=== PATIENT | male | born 1960 | race Caucasian/White ===

== ENCOUNTER 2019-03-17 12:28 | Day surgery (SDC) | payer OTHER ==
[~2019-03-17] VITALS: Ht 180.3 cm; Wt 87.9 kg
[~2019-03-17 12:28] MED LIST: LIDOCAINE 1% MDV 20ML VIAL SQ PRN; LR 1,000 ML IV ONE
[2019-03-17] MEDS ORDERED: LIDOCAINE 2% INJ 100 MG/5 ML SDV (FOR ANES.) As Ordered ONE (13:37)
[2019-03-17] MEDS ORDERED: ROCURONIUM BROMIDE 50 MG/5 ML VIAL As Ordered ONE ×2 (13:37→18:33)
[2019-03-17] MEDS ORDERED: dexameTHASONE 4 MG/ML 1ML VIAL (J1100) As Ordered ONE (13:38)
[2019-03-17] MEDS ORDERED: PROPOFOL 200 MG/20 ML VIAL As Ordered ONE (13:38)
[2019-03-17] MEDS ORDERED: ONDANSETRON 4MG/2ML VIAL (J2405) As Ordered ONE (13:38)
[2019-03-17] MEDS ORDERED: METOPROLOL 5 MG/5 ML VIAL As Ordered ONE (13:46)
[2019-03-17] MEDS ORDERED: PHENYLephrine HCL 500 MCG/5 ML (100MCG/ML) SYRINGE (J2370) As Ordered ONE (14:33)
[2019-03-17] MEDS ORDERED: MIDAZOLAM INJ 2 MG/2 ML VIAL (J2250) As Ordered ONE (15:44)
[2019-03-17] MEDS ORDERED: fentaNYL 250 MCG/5 ML INJECTION (J3010) As Ordered ONE (15:44)
[2019-03-17] MEDS ORDERED: BUPIVACAINE/EPIN 0.25% 30 ML VIAL As Ordered ONE (17:14)
[2019-03-17] MEDS ORDERED: SUGAMMADEX SODIUM 500 MG/5 ML VIAL (BRIDION) As Ordered ONE (18:10)
[2019-03-17] MEDS ORDERED: KETOROLAC 60 MG/2 ML VIAL (J1885) As Ordered ONE (18:10)
[2019-03-17] MEDS ORDERED: ACETAMINOPHEN 1000MG 100ML IV BTL (OFIRMEV) (J0131 PER 10MG) As Ordered ONE (18:13)
[2019-03-17] MEDS ORDERED: HYDROmorphone HCL 2 MG/ML 1ML VIAL (J1170) As Ordered ONE (18:21)
[2019-03-17] MEDS ORDERED: PERCOCET 5MG/325MG TAB PO PRN (19:45)
[2019-03-17] MEDS ORDERED: LR 1,000 ML IV SCH (19:45)
[2019-03-17] MEDS ORDERED: fentaNYL 100 MCG/2 ML INJECTION (J3010) IV PRN (19:45)
[2019-03-17] MEDS ORDERED: MEPERIDINE INJ 25 MG/ML VIAL (J2175) IV PRN (19:45)
[2019-03-17] MEDS ORDERED: ONDANSETRON 4MG/2ML VIAL (J2405) IV PRN (19:45)
[2019-03-17] MEDS ORDERED: METOCLOPRAMIDE INJ 10MG/2ML VIAL (J2765) IV PRN (19:45)
[2019-03-17] MEDS ORDERED: NORCO, ANEXSIA 5/325MG TABLET (HYDROcodone/ACETAMINOPHEN) PO PRN (19:45)
[2019-03-17 22:50] VITALS: BP 150/81
--- NOTE | 2019-03-18 16:31 | RO ---
DATE OF PROCEDURE: 03/17/2019 PREOPERATIVE DIAGNOSIS: Bilateral inguinal hernias. POSTOPERATIVE DIAGNOSIS: Bilateral inguinal hernias. PROCEDURES: Robotic repair of bilateral inguinal hernias. SURGEON: Dr. Le MANAGER OF INVESTIGATIONS: None. ANESTHESIA: General. ESTIMATED BLOOD LOSS: 5. COMPLICATIONS: None. INDICATIONS FOR PROCEDURE: Patient is 59-year-old male with bilateral groin bulges found have bilateral inguinal hernias. Recommendation was to proceed with robotic repair. Risks and benefits of procedure not limited but including bleeding, infection, hernia recurrence, damage to surrounding structures and need for further surgery were discussed in detail with the patient. Informed consent was obtained. Procedure was planned. PROCEDURE: The patient was brought back to operating room #7. After sufficient sedation, the abdomen was sterilely prepped and draped. Next, a time-out was done to confirm proper patient and proper procedure. Following that a stab incision was made in left lower quadrant. Veress needle was inserted and the abdomen was insufflated to 15 mmHg. Next, an 8 mm port was placed superior to the umbilicus and an 8 mm Optiview camera was used to gain access to the abdomen. Once the abdomen was entered, Veress needle site was examined. There were no signs of any injury. Veress needle was then removed. Two more 8 mm ports were placed in the left and right midabdomen. Next, the robot was docked to the ports and from the console there were obvious direct inguinal hernias identified in the both left and right groin. Starting on the right side, the peritoneum was entered superior to the defect with a curved incision. The preperitoneal space was dissected free laterally and then medially, and then circumferentially around the direct defect. Once it was completely dissected free, the hernia sac was completely dissected free as well as the cord structures. A cord lipoma was identified and that was dissected free and removed completely. The hernia defect on the right side was then closed primarily with a #2-0 V-Loc suture. Once that was completed, the dissection was done on all left side. The peritoneum was opened and the preperitoneal space was dissected free medially, laterally and then around the entire hernia defect. The direct hernia was completely reduced. Once that was completely reduced, both left and right 3DMax medium meshes were placed into the preperitoneal space. A #2-0 Vicryl suture was used to suture the mesh to the pubic symphysis on both sides. Once that was completed, a #2-0 V-Loc was used to close the peritoneum in both sides. Once that was done, the abdomen was desufflated. The cord lipoma was removed from the abdomen. All the sutures removed. The incisions were closed with #4-0 Vicryl subcuticular sutures. The abdomen was cleaned and dried. Steri-Strips, 4 x 4 and tape were applied, thus ending procedure.
== END 2019-03-17 22:50 | disposition home or self-care (01) ==
LOC: M SDC 12:28
PROVIDERS: ATTEND Surgery
DX: K40.20 Bilateral inguinal hernia, without obstruction or gangrene, not specified as recurrent (principal); F17.290 Nicotine dependence, other tobacco product, uncomplicated
CPT/HCPCS: 49650; C1781; J0131; J0690; J1100; J1170; J1885; J2250; J2405; J3010

== ENCOUNTER 2019-03-20 19:34 | Observation (INO) | payer OTHER ==
[~2019-03-20] VITALS: Ht 180.3 cm; Wt 87.4 kg
[2019-03-20] MEDS ORDERED: GOOD200C PO (19:43)
[2019-03-20] MEDS ORDERED: NS 1,000 ML IV SCH (20:16)
[2019-03-20] MEDS ORDERED: PANTOPRAZOLE 40MG INJ (PROTONIX) (C9113) IV ONE (20:30)
[2019-03-20] MEDS ORDERED: GI COCKTAIL 50ML BTL(HYOSCYAMINE/MAALOX/LIDOCAINE VISCOUS)(1:3:1) PO ONE (20:30)
[2019-03-20] MEDS ORDERED: ONDANSETRON 4MG/2ML VIAL (J2405) IV ONE (20:30)
[2019-03-20 21:00] LABS: BASO # 0.1 10^3/uL (0.0-0.2); BASO % 0.4 % (0.0-1.0); EOS # 0.1 10^3/uL (0.0-0.5); EOS % 0.7 % (0.0-3.0); HEMATOCRIT 24.7 % (42.0-52.0); HEMOGLOBIN 8.6 g/dl (13.5-17.5); LYMPH # 2.8 10^3/uL (1.5-5.0); LYMPH % 24.3 % (24.0-44.0); MEAN CORPUSCULAR HEMOGLOBIN 32.3 pg (27.0-33.0); MEAN CORPUSCULAR HGB CONC 34.8 g/dl (32.0-36.5); MEAN CORPUSCULAR VOLUME 92.9 fl (80.0-96.0); MONO # 1.4 10^3/uL (0.0-0.8); MONO % 12.4 % (0.0-5.0); NEUTROPHILS % 61.6 % (36.0-66.0); PLATELET COUNT, AUTOMATED 180 10^3/uL (150-450); RED BLOOD COUNT 2.66 10^6/uL (4.30-6.10); WHITE BLOOD COUNT 11.3 10^3/uL (4.0-10.0)
[2019-03-20 21:28] LABS: ALBUMIN 3.2 GM/DL (3.2-5.2); ALT/SGPT 20 U/L (12-78); BILIRUBIN,DIRECT 0.1 MG/DL (0.0-0.2); BILIRUBIN,TOTAL 0.4 MG/DL (0.2-1.0); BLOOD UREA NITROGEN 17 MG/DL (7-18); CALCIUM LEVEL 8.1 MG/DL (8.5-10.1); CARBON DIOXIDE LEVEL 26 MEQ/L (21-32); CHLORIDE LEVEL 104 MEQ/L (98-107); CK-MB VALUE MASS < 1.0 NG/ML (<3.6); CPK CREATINE PHOSPHOKINASE 53 U/L (39-308); CREATININE FOR GFR 0.97 MG/DL (0.70-1.30); GLOMERULAR FILTRATION RATE > 60.0 (>56); GLUCOSE, FASTING 112 MG/DL (70-100); LIPASE 80 U/L (73-393); MB/CK RELATIVE INDEX 1.89 (< OR =4); POTASSIUM SERUM 4.1 MEQ/L (3.5-5.1); SODIUM LEVEL 139 MEQ/L (136-145); TOTAL PROTEIN 5.8 GM/DL (6.4-8.2); TROPONIN I < 0.02 NG/ML (< 0.10)
--- NOTE | 2019-03-20 22:16 | REPVR ---
EXAM: XR Chest, 2 Views EXAM DATE/TIME: 03/20/2019 9:11 PM CLINICAL HISTORY: 59 years old, male; Chest pain; Type not specified TECHNIQUE: Imaging protocol: XR of the chest Views: 2 views. COMPARISON: No relevant prior studies available. FINDINGS: Lungs: No focal areas of consolidation. Pleural space: No pleural effusion or pneumothorax. Heart/Mediastinum: Cardiac and mediastinal silhouettes are unremarkable. Bones/joints: No acute osseus lesion or fracture. IMPRESSION: No acute cardiopulmonary pathology. Electronically signed by: James Beltran On 03/20/2019 22:16:18 PM
[2019-03-20] MEDS ORDERED: NORC1TAB7 PO (23:22)
--- NOTE | 2019-03-20 23:32 | HPEPDOC ---
General Date of Admission 03/20/19 Date of Service: Mar 20, 2019 Attending Physician: CHEPE FLORIAN DO Chief Complaint The patient is a 59-year-old male admitted with a reason for visit of [facility]. History of Present Illness Patient is 59 years old male with past medical history of bilateral inguinal hernia, who was a smoker presented to the hospital with upper epigastric pain and burping. Patient stated that 4 days ago he did have a robotic bilateral inguinal hernia repair. After surgery on the next day he developed severe hiccups with loss of appetite. Patient did have a few episodes of vomiting today. For past 2 days his hiccups also associated with epigastric pain and nausea. Also patient complained of profound weakness. In emergency room patient received GI cocktail, omeprazole. Chest x-ray was negative, troponin was negative. Stool for occult blood was negative. Of note patient noticed 3 days ago black stool. Patient has never had colonoscopy. Pat ient was found to have anemia with hemoglobin level of 8.6. Patient denies fever, chills, shortness of breath, diarrhea or dysuria Home Medications Scheduled PRN Hydrocodone/Acetaminophen ([place] 5-325 Tablet) 1 Each Tablet, 1 TAB PO Q6H PRN for POST SURGICAL PAIN, (Reported) Ibuprofen (Ibuprofen) 200 Mg Capsule, 400 MG PO Q8H PRN for PAIN, (Reported) Allergies Coded Allergies: No Known Allergies (Unverified , 03/17/19) Past Medical History Medical History Bilateral inguinal hernia Former smoker stopped 1 month ago Surgical History Bilateral inguinal hernia repair Family History Father from lung cancer, mother has breast cancer Social History * Smoker: former Smoker Alcohol: occationally Drugs: denies A-FIB/CHADSVASC A-FIB History Current/History of A-Fib/PAF?: No Current PO Anticoag Therapy: No Review of Systems Constitutional: Reports: Weakness, Fatigue; Denies: Chills Eyes: Denies: Pain, Vision change ENT: Denies: Head Aches, Ear Pain Skin: Denies: Lesions Pulmonary: Denies: Dyspnea, Cough Cardiovascular: Denies: Chest Pain Gastrointestinal: Reports: Nausea, Vomiting, Abdominal Pain (epigastric abdominal pain) Genitourinary: Denies: Dysuria, Frequency Hematologic: Denies: Bruising, Bleeding Excessively Endocrine: Denies: Polydipsia, Polyphagia Musculoskeletal: Denies: Neck Pain, Back Pain Neurological: Denies: Weakness, Numbness Psych: Reports: Mood Normal Physical Examination General Exam: Positive: Alert, Cooperative Eye Exam: Positive: PERRLA, Conjunctiva & lids normal ENT Exam: Positive: Atraumatic, Mucous membr. moist/pink Neck Exam: Positive: Supple; Negative: JVD Chest Exam: Positive: Clear to auscultation Heart Exam: Positive: Rate Normal, Regular Rhythm Telemetry: Positive: No significant arrhythmia Abdomen Exam: Positive: BS Hypoactive, Soft, Other (pain relief after GI cocktail) Vital Signs Vital Signs Date Time Temp Pulse Resp B/P (MAP) Pulse Ox O2 Delivery O2 Flow Rate FiO2 03/20/19 22:34 86 20 131/66 (87) 100 Room Air 03/20/19 19:34 98.3 Laboratory Data Labs 24H Laboratory Tests 2 03/20/19 20:55: Immature Granulocyte % (Auto) 0.6, White Blood Count 11.3H, Red Blood Count 2.66L, Hemoglobin 8.6L, Hematocrit 24.7L, Mean Corpuscular Volume 92.9, Mean Corpuscular Hemoglobin 32.3, Mean Corpuscular Hemoglobin Concent 34.8, Red Cell Distribution Width 12.0, Platelet Count 180, Neutrophils (%) (Auto) 61.6, Lymphocytes (%) (Auto) 24.3, Monocytes (%) (Auto) 12.4H, Eosinophils (%) (Auto) 0.7, Basophils (%) (Auto) 0.4, Neutrophils # (Auto) 7.0, Lymphocytes # (Auto) 2.8, Monocytes # (Auto) 1.4H, Eosinophils # (Auto) 0.1, Basophils # (Auto) 0.1, Nucleated Red Blood Cells % (auto) 0.0, Anion Gap 9, Glomerular Filtration Rate > 60.0, Calcium Level 8.1L, Aspartate Amino Transf (AST/SGOT) 16, Alanine Aminotransferase (ALT/SGPT) 20, Alkaline Phosphatase 41L, Total Bilirubin 0.4, Direct Bilirubin 0.1, Total Creatine Kinase 53, Creatine Kinase MB < 1.0, Creatine Kinase MB Relative Index 1.89, Troponin I < 0.02, Total Protein 5.8L, Albumin 3.2, Albumin/Globulin Ratio 1.23, Lipase 80 CBC/BMP Laboratory Tests 03/20/19 20:55 Red Blood Count 2.66 L, Mean Corpuscular Volume 92.9, Mean Corpuscular Hemoglobin 32.3, Mean Corpuscular Hemoglobin Concent 34.8, Red Cell Distribution Width 12.0, Neutrophils (%) (Auto) 61.6, Lymphocytes (%) (Auto) 24.3, Monocytes (%) (Auto) 12.4 H, Eosinophils (%) (Auto) 0.7, Basophils (%) (Auto) 0.4, Neutrophils # (Auto) 7.0, Lymphocytes # (Auto) 2.8, Monocytes # (Auto) 1.4 H, Eosinophils # (Auto) 0.1, Basophils # (Auto) 0.1 Microbiology Microbiology 03/20/19 Group A Streptococcus Screen (LENI), Received Pending Assessment/Plan Patient is 59 years old male with past medical history of bilateral inguinal hernia, who was smoker presented to the hospital with upper epigastric pain and burping. Patient was found to have hemoglobin of 8.6. Problems (1) Abdominal pain Problem Text: The differential diagnosis includes GERD, peptic ulcer, gastritis PPI IV IV fluid Appreciate/agree with head of sales consult (2) Anemia Status: Acute Problem Text: Most likely secondary to stress ulcer after surgery H&H every 6 hours Due to profound weakness we will give him 1 unit of blood Iron panel before blood transfusion Patient will need colonoscopy and EGD Will check B12 and folate level Plan / VTE VTE Prophylaxis Ordered?: No VTE Exclusion Pharmacological: Active Bleeding CHEPE FLORIAN DO Mar 20, 2019 23:32
[2019-03-20] MEDS: NS 1,000 ML IV SCH (23:34)
[2019-03-20 23:45] LABS: FERRITIN 185 NG/ML (26-388); IRON (FE) 55 UG/DL (65-175); PERCENT SATURATION 22.5 % (19.7-50.0); TOTAL IRON BINDING CAPACITY 244 UG/DL (250-450)
[2019-03-21 00:48] VITALS: BP 130/60
[2019-03-21] MEDS ORDERED: NS 1,000 ML IV SCH (01:05)
[2019-03-21 04:30] VITALS: BP 127/64
[2019-03-21 07:16] LABS: HEMATOCRIT 24.7 % (42.0-52.0); HEMOGLOBIN 8.4 g/dl (13.5-17.5)
[2019-03-21] MEDS: NS 1,000 ML IV SCH (08:44)
[2019-03-21] MEDS ORDERED: CYANOCOBALAMIN 500 MCG TAB PO SCH (09:00)
[2019-03-21] MEDS ORDERED: PANTOPRAZOLE 40MG INJ (PROTONIX) (C9113) IV SCH (09:00)
[2019-03-21 10:24] LABS: FOLATE 15.1 NG/ML (>5.4); VITAMIN B12 LEVEL 278 PG/ML (247-911)
[2019-03-21 13:26] LABS: HEMATOCRIT 24.3 % (42.0-52.0); HEMOGLOBIN 8.2 g/dl (13.5-17.5)
[2019-03-21 14:00] VITALS: BP 114/61
[2019-03-21] MEDS ORDERED: ONDANSETRON 4MG/2ML VIAL (J2405) IV PRN (14:45)
[2019-03-21] MEDS ORDERED: VITA500T40 PO (16:58)
[2019-03-21] MEDS ORDERED: RANI1TAB38 PO (16:58)
[2019-03-21 19:12] VITALS: BP 138/67
--- NOTE | 2019-03-22 04:29 | ECGEPIP ---
[facility] - ED Test Date: 2019-03-20 Pat Name: JESSICA HARLEY Department: Room: [place] [address] Gender: Male Pharmacy Tech: rachel : 1960 Requested By: MANDIE Flores Order Number: [id number] Reading MD: George Salamanca Measurements Intervals [place] Rate: 79 P: 74 VT: 172 QRS: 40 QRSD: 84 T: 47 QT: 359 QTc: 412 Interpretive Statements SINUS RHYTHM NO PRIORS FOR COMPARISON Electronically Signed on 03-22-2019 4:29:50 EDT by George Salamanca
[2019-03-22 11:08] LABS: ALBUMIN 2.99 GM/DL (3.29-5.55); ALBUMIN % 59.7 % (55.8-66.1); ALPHA-1-GLOBULIN % 7.6 % (2.9-4.9); ALPHA-1-GLOBULINS 0.38 GM/DL (0.17-0.41); ALPHA-2-GLOBULINS 0.66 GM/DL (0.42-0.99); ALPHA-2-GLOBULINS % 13.2 % (7.1-11.8); BETA-1-GLOBULINS 0.27 GM/DL (0.28-0.60); BETA-1-GLOBULINS % 5.4 % (4.7-7.2); BETA-2-GLOBULINS 0.24 GM/DL (0.19-0.55); BETA-2-GLOBULINS % 4.8 % (3.2-6.5); GAMMA GLOBULIN % 9.3 % (11.1-18.8); GAMMA GLOBULINS 0.47 GM/DL (0.65-1.58)
[2019-03-24 00:06] LABS: FREE KAPPA LIGHT CHAINS SERUM 12.4 mg/L (3.3-19.4); FREE LAMBDA LIGHT CHAINS SERUM 15.2 mg/L (5.7-26.3); KAPPA/LAMBDA RATIO SERUM 0.82 (0.26-1.65)
[2019-04-12] MEDS ORDERED: IRON65TA2 PO (13:15)
[2019-04-12] MEDS ORDERED: C 50TAB PO (13:15)
[2019-06-06] MEDS ORDERED: OMEP40CA97 PO (10:17)
== END 2019-03-21 19:26 | disposition home or self-care (01) ==
LOC: M ED 19:34 → M ED INP 19:35 → M MS4PR 03-21 00:45
PROVIDERS: ADMIT Internal Medicine; ATTEND Internal Medicine
DX: D64.9 Anemia, unspecified (principal); R53.1 Weakness; Z87.891 Personal history of nicotine dependence
CPT/HCPCS: 36415; 36430; 71046; 80048; 80076; 82550; 82553; 82607; 82728; 82746; 83550; 83690; 83883; 84165; 84484; 85014; 85018; 85025; 85652; 86850; 86900; 86901; 86920; 87880; 93005; 93041; 94760; 96361; 96374; 96375; 96376; 99285; C9113; J2405; P9016

== ENCOUNTER 2019-04-20 07:42 | Day surgery (SDC) | payer OTHER ==
[~2019-04-20] VITALS: Ht 180.3 cm; Wt 86.5 kg
[~2019-04-20 07:42] MED LIST changes: +C 50TAB PO; +GOOD200C PO; +IRON65TA2 PO; -LIDOCAINE 1% MDV 20ML VIAL SQ PRN; -LR 1,000 ML IV ONE; +NORC1TAB7 PO; +NS 1,000 ML IV ONE; +RANI1TAB38 PO; +VITA500T40 PO
[2019-04-20] MEDS ORDERED: PROPOFOL 500 MG/50 ML VIAL As Ordered ONE (08:29)
[2019-04-20] MEDS ORDERED: LIDOCAINE 2% INJ 100 MG/5 ML SDV (FOR ANES.) As Ordered ONE (08:29)
[2019-04-20] MEDS ORDERED: fentaNYL 100 MCG/2 ML INJECTION (J3010) As Ordered ONE (08:29)
[2019-04-20] MEDS ORDERED: PROPOFOL 200 MG/20 ML VIAL As Ordered ONE (09:59)
--- NOTE | 2019-04-20 10:06 | ROOR ---
Patient Name: Leopoldo Magallanes Procedure Date: 04/20/2019 9:14 AM Date of : 1960 Age: 59 Room: [facility] Gender: Male Note Status: Finalized Procedure: Upper GI endoscopy Indications: Iron deficiency anemia Providers: DO Morenita Villagomez MD: JENNY ALVARADO MD Requesting Provider: Medicines: Propofol per Anesthesia Complications: No immediate complications. Procedure: Pre-Anesthesia Assessment: - Prior to the procedure, a History and Physical was performed, and patient medications and allergies were reviewed. The patient is competent. The risks and benefits of the procedure and the sedation options and risks were discussed with the patient. All questions were answered and informed consent was obtained. Patient identification and proposed procedure were verified by the physician, the nurse, the anesthesiologist and the is technician in the endoscopy suite. Mental Status Examination: alert and oriented. Airway Examination: normal oropharyngeal airway and neck mobility. Respiratory Examination: clear to auscultation. CV Examination: normal. Prophylactic Antibiotics: The patient does not require prophylactic antibiotics. Prior Anticoagulants: The patient has taken no previous anticoagulant or antiplatelet agents. ASA Grade Assessment: II - A patient with mild systemic disease. After reviewing the risks and benefits, the patient was deemed in satisfactory condition to undergo the procedure. The anesthesia plan was to use monitored anesthesia care (MAC). Immediately prior to administration of medications, the patient was re-assessed for adequacy to receive sedatives. The heart rate, respiratory rate, oxygen saturations, blood pressure, adequacy of pulmonary ventilation, and response to care were monitored throughout the procedure. The physical status of the patient was re-assessed after the procedure. The Endoscope was introduced through the mouth, and advanced to the second part of duodenum. The upper GI endoscopy was accomplished without difficulty. The patient tolerated the procedure well. Findings: A medium-sized hiatal hernia was present. LA Grade D (one or more mucosal breaks involving at least 75% of esophageal circumference) esophagitis with bleeding was found. Biopsies were taken with a cold forceps for histology. Estimated blood loss was minimal. Diffuse mild inflammation characterized by congestion (edema) and friability was found in the duodenal bulb. Multiple less than 5 mm pedunculated and sessile polyps with no bleeding were found in the duodenal bulb. The polyp was removed with a jumbo cold forceps. Resection and retrieval were complete. Estimated blood loss was minimal. The exam was otherwise without abnormality. Impression: - Medium-sized hiatal hernia. - LA Grade D esophagitis. Biopsied. - Duodenitis. - Multiple duodenal polyps. Resected and retrieved. - The examination was otherwise normal. Recommendation: - Patient has a contact number available for emergencies. The signs and symptoms of potential delayed complications were discussed with the patient. Return to normal activities tomorrow. Written discharge instructions were provided to the patient. - Return to my office as previously scheduled. - Await pathology results. Oneal Le DO 04/20/2019 10:06:18 AM Electronically signed by Oneal Le DO Number of Addenda: 0 Note Initiated On: 04/20/2019 9:14 AM Estimated Blood Loss: Estimated blood loss was minimal.
--- NOTE | 2019-04-20 10:11 | ROOR ---
Patient Name: Leopoldo Magallanes Procedure Date: 04/20/2019 9:15 AM Date of : 1960 Age: 59 Room: [facility] Gender: Male Note Status: Finalized Procedure: Colonoscopy Indications: Iron deficiency anemia Providers: DO Morenita Villagomez MD: JENNY ALVARADO MD Requesting Provider: Medicines: Propofol per Anesthesia Complications: No immediate complications. Procedure: Pre-Anesthesia Assessment: - Prior to the procedure, a History and Physical was performed, and patient medications and allergies were reviewed. The patient is competent. The risks and benefits of the procedure and the sedation options and risks were discussed with the patient. All questions were answered and informed consent was obtained. Patient identification and proposed procedure were verified by the physician, the nurse, the anesthesiologist and the nanotechnology technician in the endoscopy suite. Mental Status Examination: alert and oriented. Airway Examination: normal oropharyngeal airway and neck mobility. Respiratory Examination: clear to auscultation. CV Examination: normal. Prophylactic Antibiotics: The patient does not require prophylactic antibiotics. Prior Anticoagulants: The patient has taken no previous anticoagulant or antiplatelet agents. ASA Grade Assessment: II - A patient with mild systemic disease. After reviewing the risks and benefits, the patient was deemed in satisfactory condition to undergo the procedure. The anesthesia plan was to use monitored anesthesia care (MAC). Immediately prior to administration of medications, the patient was re-assessed for adequacy to receive sedatives. The heart rate, respiratory rate, oxygen saturations, blood pressure, adequacy of pulmonary ventilation, and response to care were monitored throughout the procedure. The physical status of the patient was re-assessed after the procedure. The Colonoscope was introduced through the anus and advanced to the cecum, identified by appendiceal orifice and ileocecal valve. The colonoscopy was performed without difficulty. The patient tolerated the procedure well. Findings: Non-bleeding internal hemorrhoids were found during retroflexion. The hemorrhoids were small and Grade I (internal hemorrhoids that do not prolapse). A few small-mouthed diverticula were found in the sigmoid colon. A 18 mm polyp was found in the ascending colon. The polyp was semi-pedunculated. The polyp was removed with a piecemeal technique using a hot snare. Resection and retrieval were complete. Estimated blood loss was minimal. Multiple carpet-like polyps were found in the sigmoid colon and descending colon. The polyps were 4 to 8 mm in size. These polyps were removed with a jumbo cold forceps. Resection and retrieval were complete. Estimated blood loss was minimal. Impression: - Non-bleeding internal hemorrhoids. - Diverticulosis in the sigmoid colon. - One 18 mm polyp in the ascending colon, removed piecemeal using a hot snare. Resected and retrieved. - Multiple 4 to 8 mm polyps in the sigmoid colon and in the descending colon, removed with a jumbo cold forceps. Resected and retrieved. Recommendation: - Repeat colonoscopy in 1 year for surveillance after piecemeal polypectomy. - Return to my office as previously scheduled. - Await pathology results. Oneal Le DO 04/20/2019 10:10:37 AM Electronically signed by Oneal Le DO Number of Addenda: 0 Note Initiated On: 04/20/2019 9:15 AM Estimated Blood Loss: Estimated blood loss was minimal.
[2019-04-20 10:42] VITALS: BP 138/81
== END 2019-04-20 10:44 | disposition home or self-care (01) ==
LOC: M OPP 07:42
PROVIDERS: ATTEND Surgery
DX: K64.0 First degree hemorrhoids (principal); D12.2 Benign neoplasm of ascending colon; D12.5 Benign neoplasm of sigmoid colon; D12.4 Benign neoplasm of descending colon; K57.30 Diverticulosis of large intestine without perforation or abscess without bleeding; D50.9 Iron deficiency anemia, unspecified; K44.9 Diaphragmatic hernia without obstruction or gangrene; K20.9 Esophagitis, unspecified; K29.80 Duodenitis without bleeding; K31.7 Polyp of stomach and duodenum; Z87.891 Personal history of nicotine dependence
CPT/HCPCS: 43239; 45380; 45385; 88305; J3010

== ENCOUNTER 2019-06-15 07:22 | Day surgery (SDC) | payer OTHER ==
[~2019-06-15] VITALS: Ht 180.3 cm; Wt 92.5 kg
[~2019-06-15 07:22] MED LIST changes: +OMEP40CA97 PO; +PROPOFOL 200 MG/20 ML VIAL As Ordered ONE
[2019-06-15] MEDS ORDERED: PROPOFOL 200 MG/20 ML VIAL As Ordered ONE (09:08)
--- NOTE | 2019-06-15 09:22 | ROOR ---
Patient Name: Leopoldo Magallanes Procedure Date: 06/15/2019 8:37 AM Date of : 1960 Age: 59 Room: [facility] Gender: Male Note Status: Finalized Procedure: Colonoscopy Indications: High risk colon cancer surveillance: Personal history of colonic polyps Providers: DO Morenita Villagomez MD: JENNY ALVARADO MD Requesting Provider: Medicines: Propofol per Anesthesia Complications: No immediate complications. Procedure: Pre-Anesthesia Assessment: - Prior to the procedure, a History and Physical was performed, and patient medications and allergies were reviewed. The patient is competent. The risks and benefits of the procedure and the sedation options and risks were discussed with the patient. All questions were answered and informed consent was obtained. Patient identification and proposed procedure were verified by the physician, the nurse, the anesthesiologist and the claims technician in the endoscopy suite. Mental Status Examination: alert and oriented. Airway Examination: normal oropharyngeal airway and neck mobility. Respiratory Examination: clear to auscultation. CV Examination: normal. Prophylactic Antibiotics: The patient does not require prophylactic antibiotics. Prior Anticoagulants: The patient has taken no previous anticoagulant or antiplatelet agents. ASA Grade Assessment: II - A patient with mild systemic disease. After reviewing the risks and benefits, the patient was deemed in satisfactory condition to undergo the procedure. The anesthesia plan was to use monitored anesthesia care (MAC). Immediately prior to administration of medications, the patient was re-assessed for adequacy to receive sedatives. The heart rate, respiratory rate, oxygen saturations, blood pressure, adequacy of pulmonary ventilation, and response to care were monitored throughout the procedure. The physical status of the patient was re-assessed after the procedure. The Colonoscope was introduced through the anus and advanced to the cecum, identified by appendiceal orifice and ileocecal valve. The colonoscopy was performed without difficulty. The patient tolerated the procedure well. Findings: Non-bleeding internal hemorrhoids were found during retroflexion. The hemorrhoids were Grade I (internal hemorrhoids that do not prolapse). Multiple small-mouthed diverticula were found in the sigmoid colon. Seven polyps were found in the sigmoid colon, descending colon, transverse colon and cecum. The polyps were small in size. These polyps were removed with a jumbo cold forceps. Resection and retrieval were complete. Estimated blood loss was minimal. The exam was otherwise without abnormality on direct and retroflexion views. Impression: - Non-bleeding internal hemorrhoids. - Diverticulosis in the sigmoid colon. - Seven small polyps in the sigmoid colon, in the descending colon, in the transverse colon and in the cecum, removed with a jumbo cold forceps. Resected and retrieved. - The examination was otherwise normal on direct and retroflexion views. Recommendation: - Patient has a contact number available for emergencies. The signs and symptoms of potential delayed complications were discussed with the patient. Return to normal activities tomorrow. Written discharge instructions were provided to the patient. - Repeat colonoscopy in 3 - 5 years for surveillance based on pathology results. - Return to my office as previously scheduled. Oneal Le DO 06/15/2019 9:22:37 AM Electronically signed by Oneal Le DO Number of Addenda: 0 Note Initiated On: 06/15/2019 8:37 AM Estimated Blood Loss: Estimated blood loss was minimal.
[2019-06-15 09:45] VITALS: BP 113/64
== END 2019-06-15 09:56 | disposition home or self-care (01) ==
LOC: M OPP 07:22
PROVIDERS: ATTEND Surgery
DX: K64.0 First degree hemorrhoids (principal); K63.5 Polyp of colon; K57.30 Diverticulosis of large intestine without perforation or abscess without bleeding; K21.9 Gastro-esophageal reflux disease without esophagitis; Z86.010 Personal history of colon polyps; Z87.891 Personal history of nicotine dependence

== ENCOUNTER 2019-10-20 10:08 | Emergency (ER) | payer OTHER ==
[~2019-10-20] VITALS: Ht 180.3 cm; Wt 98.3 kg
[~2019-10-20 10:08] MED LIST changes: -NS 1,000 ML IV ONE; -PROPOFOL 200 MG/20 ML VIAL As Ordered ONE
[2019-10-20] MEDS ORDERED: OMEP-221 (10:16)
[2019-10-20] MEDS ORDERED: NS 1,000 ML IV ONE (10:45)
[2019-10-20 10:55] LABS: BASO % 0.6 % (0.0-1.0); EOS # 0.2 10^3/uL (0.0-0.5); EOS % 3.8 % (0.0-3.0); HEMATOCRIT 41.3 % (42.0-52.0); LYMPH % 30.7 % (24.0-44.0); MEAN CORPUSCULAR HEMOGLOBIN 30.2 pg (27.0-33.0); MEAN CORPUSCULAR HGB CONC 33.9 g/dl (32.0-36.5); MEAN CORPUSCULAR VOLUME 89.2 fl (80.0-96.0); MONO # 0.8 10^3/uL (0.0-0.8); MONO % 11.8 % (0.0-5.0); NEUTROPHILS # 3.4 10^3/uL (1.5-8.5); NEUTROPHILS % 52.9 % (36.0-66.0); PLATELET COUNT, AUTOMATED 180 10^3/uL (150-450); RED BLOOD COUNT 4.63 10^6/uL (4.30-6.10); WHITE BLOOD COUNT 6.4 10^3/uL (4.0-10.0)
[2019-10-20 11:04] LABS: INR 1.08; PROTHROMBIN TIME 13.7 SECONDS (11.8-14.0)
[2019-10-20 11:05] LABS: PARTIAL THROMBOPLASTIN TIME 30.9 SECONDS (25.0-38.4)
[2019-10-20 11:26] LABS: ALBUMIN 4.2 GM/DL (3.2-5.2); ALT/SGPT 52 U/L (12-78); BILIRUBIN,DIRECT 0.1 MG/DL (0.0-0.2); BILIRUBIN,TOTAL 0.5 MG/DL (0.2-1.0); BLOOD UREA NITROGEN 19 MG/DL (7-18); CALCIUM LEVEL 8.4 MG/DL (8.5-10.1); CARBON DIOXIDE LEVEL 27 MEQ/L (21-32); CHLORIDE LEVEL 107 MEQ/L (98-107); CREATININE FOR GFR 1.21 MG/DL (0.70-1.30); GLOMERULAR FILTRATION RATE > 60.0 (>56); GLUCOSE, FASTING 92 MG/DL (70-100); LIPASE 109 U/L (73-393); POTASSIUM SERUM 4.4 MEQ/L (3.5-5.1); SODIUM LEVEL 139 MEQ/L (136-145); TOTAL PROTEIN 7.2 GM/DL (6.4-8.2)
--- NOTE | 2019-10-20 11:59 | REP ---
REASON FOR EXAM: Abdominal pain and black stool. FINDINGS: Supine and upright views of the abdomen show the intestinal gas pattern to be nonspecific. Gas and stool is seen throughout the colon within the rectosigmoid region. The organ silhouettes insofar as delineated appear unremarkable. No abdominal calcific densities are seen within the abdomen or pelvis. The accompanying single frontal view of the chest shows no free subdiaphragmatic air, cardiomegaly, infiltrates or effusions. IMPRESSION: Nonspecific intestinal gas pattern. Electronically Signed by Radames Sotelo DO 10/20/2019 12:14 P
[2019-10-20] MEDS ORDERED: SIME180C PO (12:22)
[2019-10-20 12:30] VITALS: BP 135/75
== END 2019-10-20 12:34 | disposition home or self-care (01) ==
LOC: M ED 10:08
DX: K92.1 Melena (principal); R14.0 Abdominal distension (gaseous); Z79.899 Other long term (current) drug therapy

== ENCOUNTER → 2020-01-23 | Outpatient (CLI) | payer OTHER ==
[~2020-01-23] MED LIST changes: +GASTROGRAFIN SOLUTION 30ML (Q9963) As Ordered ONE; +ISOVUE-370 76% 100ML VIAL As Ordered ONE; +OMEP-221; +SIME180C PO
--- NOTE | 2020-01-23 16:22 | REP ---
Clinical: Lower abdominal pain. Technique: Axial contrast enhanced images from the lung bases to the pubic symphysis using oral (per protocol) and 100 ml Isovue 370 intravenous contrast material with delayed images of the abdomen. Findings: Lung bases are clear. Visualized heart and pericardium normal. Liver includes two hypodensities compatible with cysts measuring up to approximately 1.3 cm. Spleen, pancreas, gallbladder, bilateral adrenal glands and kidneys are normal. The enteric system is without obstruction or acute inflammatory process. Pelvis demonstrates normal bladder and mild prostatomegaly along with fat containing inguinal hernia (left greater than right). No ascites. No free air. No adenopathy. Abdominal aorta without aneurysm or dissection. Musculoskeletal structures are intact. Impression: 1. Two small hepatic cysts measure up to 1.3 cm. 2. Small/moderate fat containing inguinal hernias (left greater than right). 3. No further acute abdominopelvic pathology appreciated. Electronically Signed by Mauri Luciano MD 01/23/2020 04:14 P
== END ==
LOC: M RAD 13:48
PROVIDERS: ATTEND Internal Medicine Gastroenterology
DX: K76.89 Other specified diseases of liver (principal); K76.0 Fatty (change of) liver, not elsewhere classified
CPT/HCPCS: 74178; Q9963; Q9967

== ENCOUNTER → 2020-10-05 | Outpatient (CLI) | payer OTHER ==
[~2020-10-05] MED LIST changes: -GASTROGRAFIN SOLUTION 30ML (Q9963) As Ordered ONE; -ISOVUE-370 76% 100ML VIAL As Ordered ONE
[2020-10-05 10:50] LABS: BASO # 0.1 10^3/uL (0.0-0.2); BASO % 1.1 % (0.0-1.0); EOS # 0.4 10^3/uL (0.0-0.5); EOS % 6.9 % (0.0-3.0); HEMOGLOBIN 14.7 g/dl (13.5-17.5); LYMPH # 1.9 10^3/uL (1.5-5.0); LYMPH % 33.3 % (24.0-44.0); MEAN CORPUSCULAR HEMOGLOBIN 30.4 pg (27.0-33.0); MEAN CORPUSCULAR HGB CONC 33.4 g/dl (32.0-36.5); MEAN CORPUSCULAR VOLUME 90.9 fl (80.0-96.0); MONO # 0.6 10^3/uL (0.0-0.8); MONO % 10.6 % (2.0-8.0); NEUTROPHILS # 2.7 10^3/uL (1.5-8.5); NEUTROPHILS % 47.7 % (36.0-66.0); PLATELET COUNT, AUTOMATED 226 10^3/uL (150-450); RED BLOOD COUNT 4.84 10^6/uL (4.30-6.10); WHITE BLOOD COUNT 5.7 10^3/uL (4.0-10.0)
[2020-10-05 11:26] LABS: ALBUMIN 3.9 GM/DL (3.2-5.2); BILIRUBIN,DIRECT 0.1 MG/DL (0.0-0.2); BILIRUBIN,TOTAL 0.4 MG/DL (0.2-1.0); TOTAL PROTEIN 7.3 GM/DL (6.4-8.2)
[2020-10-05 11:38] LABS: FOLATE 20.3 NG/ML (>5.4)
[2020-10-05 12:16] LABS: H PYLORI QUALITATIVE IgG NEGATIVE (NEGATIVE)
[2020-10-09 03:06] LABS: IGASUB2 103.8 mg/dL (73.2-301.2); IgA SERUM (part of Subclasses) 146 mg/dL (90-386); TISSUE TRANSGLUTAMINASE IgA <2 U/mL (0-3)
== END ==
LOC: M LAB 09:59
PROVIDERS: ATTEND Internal Medicine Gastroenterology
DX: R10.31 Right lower quadrant pain (principal); R14.0 Abdominal distension (gaseous)

== ENCOUNTER → 2020-10-07 | Outpatient (REF) | payer OTHER | LOC: M LAB REF 11:40 | PROVIDERS: ATTEND Internal Medicine Gastroenterology | DX: R14.0 Abdominal distension (gaseous) (principal) ==

== ENCOUNTER → 2021-01-21 | Outpatient (CLI) | payer OTHER ==
[~2021-01-21] MED LIST changes: +CREO3600 PO; +OMEP40CA4 PO; -OMEP40CA97 PO; +PROHANCE 279.3MG/ML 15ML VIAL As Ordered ONE; +PROHANCE 279.3MG/ML 5ML VIAL As Ordered ONE; -SIME180C PO; +SIME180C25 PO
--- NOTE | 2021-01-22 10:13 | REP ---
INDICATION: ENDOCRINE PANCREATIC INSUFFIENCY. COMPARISON: CT 01/23/2020. TECHNIQUE: Multiple sequences obtained in the coronal and axial planes prior to and following the intravenous administration of 19 cc ProHance. FINDINGS: There is a small hiatal hernia. Three cysts are seen in the liver, the largest is in the right lobe and measures 1.4 cm in diameter. The spleen, adrenals, pancreas and kidneys are unremarkable. There is no adenopathy or free fluid. There is no biliary dilatation and no evidence of pancreatic duct dilatation. There is mild thickening of the wall of the gallbladder in the fundus, with an appearance suggesting focal adenomyomatosis. IMPRESSION: Small hiatal hernia. Small benign cysts in the liver. No pancreatic abnormality. Findings compatible with focal adenomyomatosis in the fundus of the gallbladder. <Electronically signed by Oneal Langston > 01/22/21 [id number]
== END ==
LOC: M RAD 17:19
PROVIDERS: ATTEND Internal Medicine Gastroenterology
DX: K86.81 Exocrine pancreatic insufficiency (principal); R14.0 Abdominal distension (gaseous); R10.31 Right lower quadrant pain; K44.9 Diaphragmatic hernia without obstruction or gangrene; K76.89 Other specified diseases of liver; K82.8 Other specified diseases of gallbladder

== ENCOUNTER → 2021-01-28 | Outpatient (CLI) | payer OTHER ==
[~2021-01-28] MED LIST changes: -PROHANCE 279.3MG/ML 15ML VIAL As Ordered ONE; -PROHANCE 279.3MG/ML 5ML VIAL As Ordered ONE
== END ==
LOC: M LABSMTC 10:27
PROVIDERS: ATTEND Anesthesiology
DX: Z01.812 Encounter for preprocedural laboratory examination (principal); Z20.822 Contact with and (suspected) exposure to COVID-19

== ENCOUNTER 2021-02-01 10:30 | Day surgery (SDC) | payer OTHER ==
[~2021-02-01] VITALS: Ht 185.4 cm; Wt 91.6 kg
[~2021-02-01 10:30] MED LIST changes: +NS 1,000 ML IV ONE
[2021-02-01] MEDS ORDERED: LIDOCAINE 2% 100MG/5ML SDV (FOR ANES.) As Ordered ONE (12:23)
[2021-02-01] MEDS ORDERED: propofoL 200 MG/20 ML VIAL As Ordered ONE ×3 (12:23→13:04)
[2021-02-01] MEDS ORDERED: fentaNYL 100 MCG/2 ML INJECTION (J3010) As Ordered ONE (12:23)
[2021-02-01 13:30] VITALS: BP 143/87
--- NOTE | 2021-02-01 13:45 | ROOR ---
Patient Name: Leopoldo Magallanes Procedure Date: 02/01/2021 12:17 PM Date of : 1960 Age: 60 Room: [facility] Gender: Male Note Status: Finalized Procedure: Upper GI endoscopy Indications: Heartburn, Follow-up of esophagitis Providers: Fox Rosen MD Referring MD: JENNY ALVARADO MD Requesting Provider: Medicines: Monitored Anesthesia Care Complications: No immediate complications. Procedure: Pre-Anesthesia Assessment: - Prior to the procedure, a History and Physical was performed, and patient medications and allergies were reviewed. The patient is competent. The risks and benefits of the procedure and the sedation options and risks were discussed with the patient. All questions were answered and informed consent was obtained. Patient identification and proposed procedure were verified by the physician, the nurse and the anesthesiologist in the procedure room. Mental Status Examination: alert and oriented. Airway Examination: normal oropharyngeal airway and neck mobility. Respiratory Examination: clear to auscultation. CV Examination: normal. Prophylactic Antibiotics: The patient does not require prophylactic antibiotics. Prior Anticoagulants: The patient has taken no previous anticoagulant or antiplatelet agents. ASA Grade Assessment: II - A patient with mild systemic disease. After reviewing the risks and benefits, the patient was deemed in satisfactory condition to undergo the procedure. The anesthesia plan was to use monitored anesthesia care (MAC). Immediately prior to administration of medications, the patient was re-assessed for adequacy to receive sedatives. The heart rate, respiratory rate, oxygen saturations, blood pressure, adequacy of pulmonary ventilation, and response to care were monitored throughout the procedure. The physical status of the patient was re-assessed after the procedure. The Endoscope was introduced through the mouth, and advanced to the second part of duodenum. The upper GI endoscopy was accomplished without difficulty. The patient tolerated the procedure well. Findings: LA Grade D (one or more mucosal breaks involving at least 75% of esophageal circumference) esophagitis with bleeding was found in the distal esophagus. Biopsies were taken with a cold forceps for histology. Verification of patient identification for the specimen was done by the physician and nurse using the patient's name, date and medical record number. Estimated blood loss was minimal. A few 8 mm mucosal nodules with a localized distribution were found in the distal esophagus, 38 cm from the incisors. Biopsies were taken with a cold forceps for histology. A large hiatal hernia was present. Scattered mild inflammation characterized by erythema and granularity was found in the gastric antrum. Biopsies were taken with a cold forceps for Helicobacter pylori testing. The duodenal bulb and second portion of the duodenum were normal. Impression: - LA Grade D reflux esophagitis. Biopsied. - Mucosal nodule found in the esophagus. Biopsied. - Large hiatal hernia. - Gastritis. Biopsied. - Normal duodenal bulb and second portion of the duodenum. Recommendation: - Patient has a contact number available for emergencies. The signs and symptoms of potential delayed complications were discussed with the patient. Return to normal activities tomorrow. Written discharge instructions were provided to the patient. - High fiber diet. - Continue present medications. - Await pathology results. - Use Protonix (pantoprazole) 40 mg PO twice daily - to be taken in morning (1/2 hour before breakfast) and at bedtime ( atleast 3 hours after last meal) for 3 months. - Use sucralfate suspension 1 gram PO QID for 4 weeks. - Follow an antireflux regimen. - Perform an upper endoscopic ultrasound (UEUS) at appointment to be scheduled. - Return to GI clinic in [facility] (address [address], [address], [place], [address]) in 4 -- 6 weeks. Please call GI clinic @ [phone] for apppointment date and time. - Return to primary care physician. Procedure Code(s): --- Professional --- 26192, Esophagogastroduodenoscopy, flexible, transoral; with biopsy, single or multiple Diagnosis Code(s): --- Professional --- K21.0, Gastro-esophageal reflux disease with esophagitis K22.8, Other specified diseases of esophagus K44.9, Diaphragmatic hernia without obstruction or gangrene K29.70, Gastritis, unspecified, without bleeding R12, Heartburn CPT copyright 2019 [employer]. All rights reserved. The codes documented in this report are preliminary and upon wash and greaser review may be revised to meet current compliance requirements. Fox Rosen MD Fox Rosen MD 02/01/2021 1:44:45 PM Electronically signed by Fox Rosen MD Number of Addenda: 0 Note Initiated On: 02/01/2021 12:17 PM Estimated Blood Loss: Estimated blood loss was minimal.
--- NOTE | 2021-02-01 14:05 | ROOR ---
Patient Name: Leopoldo Magallanes Procedure Date: 02/01/2021 12:18 PM Date of : 1960 Age: 60 Room: [facility] Gender: Male Note Status: Finalized Procedure: Colonoscopy Indications: High risk colon cancer surveillance: Personal history of colonic polyps Providers: Fox Rosen MD Referring MD: JENNY ALVARADO MD Requesting Provider: Medicines: Monitored Anesthesia Care Complications: No immediate complications. Procedure: Pre-Anesthesia Assessment: - Prior to the procedure, a History and Physical was performed, and patient medications and allergies were reviewed. The patient is competent. The risks and benefits of the procedure and the sedation options and risks were discussed with the patient. All questions were answered and informed consent was obtained. Patient identification and proposed procedure were verified by the physician, the nurse and the anesthesiologist in the procedure room. Mental Status Examination: alert and oriented. Airway Examination: normal oropharyngeal airway and neck mobility. Respiratory Examination: clear to auscultation. CV Examination: normal. Prophylactic Antibiotics: The patient does not require prophylactic antibiotics. Prior Anticoagulants: The patient has taken no previous anticoagulant or antiplatelet agents. ASA Grade Assessment: II - A patient with mild systemic disease. After reviewing the risks and benefits, the patient was deemed in satisfactory condition to undergo the procedure. The anesthesia plan was to use monitored anesthesia care (MAC). Immediately prior to administration of medications, the patient was re-assessed for adequacy to receive sedatives. The heart rate, respiratory rate, oxygen saturations, blood pressure, adequacy of pulmonary ventilation, and response to care were monitored throughout the procedure. The physical status of the patient was re-assessed after the procedure. The Colonoscope was introduced through the anus and advanced to the terminal ileum, with identification of the appendiceal orifice and IC valve. The colonoscopy was performed without difficulty. The patient tolerated the procedure well. The quality of the bowel preparation was good. The terminal ileum, ileocecal valve, appendiceal orifice, and rectum were photographed. Scope insertion time was 2 minutes. Scope withdrawal time was 9 minutes. The total duration of the procedure was 11 minutes. Findings: The perianal and digital rectal examinations were normal. The terminal ileum appeared normal. A 12 mm polyp was found in the ascending colon. The polyp was sessile. The polyp was removed with a hot snare. Resection and retrieval were complete. Verification of patient identification for the specimen was done by the physician and nurse using the patient's name, date and medical record number. Estimated blood loss was minimal. Six sessile polyps were found in the rectum, descending colon and transverse colon. The polyps were 5 to 10 mm in size. These polyps were removed with a hot snare. Resection and retrieval were complete. Multiple small and large-mouthed diverticula were found from sigmoid to descending colon. There was no evidence of diverticular bleeding. Non-bleeding external and internal hemorrhoids were found during retroflexion. The hemorrhoids were moderate. Impression: - The examined portion of the ileum was normal. - One 12 mm polyp in the ascending colon, removed with a hot snare. Resected and retrieved. - Six 5 to 10 mm polyps in the rectum, in the descending colon and in the transverse colon, removed with a hot snare. Resected and retrieved. - Moderate diverticulosis from sigmoid to descending colon. There was no evidence of diverticular bleeding. - Non-bleeding external and internal hemorrhoids. Recommendation: - Patient has a contact number available for emergencies. The signs and symptoms of potential delayed complications were discussed with the patient. Return to normal activities tomorrow. Written discharge instructions were provided to the patient. - High fiber diet. - Continue present medications. - Use fiber, for example Citrucel, Fibercon, Konsyl or Metamucil. - Await pathology results. - Repeat colonoscopy in 3 years for surveillance based on pathology results. - Telephone GI clinic for pathology results in 2 weeks. - Return to GI clinic in [facility] (address [address], [address], [place], [facility]) in 4 -- 6 weeks. Please call GI clinic @ [phone] for apppointment date and time. - Return to primary care physician. Procedure Code(s): --- Professional --- 34837, Colonoscopy, flexible; with removal of tumor(s), polyp(s), or other lesion(s) by snare technique Diagnosis Code(s): --- Professional --- Z86.010, Personal history of colonic polyps K64.8, Other hemorrhoids K63.5, Polyp of colon K62.1, Rectal polyp K57.30, Diverticulosis of large intestine without perforation or abscess without bleeding CPT copyright 2019 [employer]. All rights reserved. The codes documented in this report are preliminary and upon executive officer review may be revised to meet current compliance requirements. Fox Rosen MD Fox Rosen MD 02/01/2021 2:05:18 PM Electronically signed by Fox Rosen MD Number of Addenda: 0 Note Initiated On: 02/01/2021 12:18 PM Estimated Blood Loss: Estimated blood loss was minimal.
== END 2021-02-01 14:15 | disposition home or self-care (01) ==
LOC: M OPP 10:30
PROVIDERS: ATTEND Internal Medicine Gastroenterology
DX: Z12.11 Encounter for screening for malignant neoplasm of colon (principal); Z86.010 Personal history of colon polyps; K63.5 Polyp of colon; K57.30 Diverticulosis of large intestine without perforation or abscess without bleeding; K64.8 Other hemorrhoids; K21.00 Gastro-esophageal reflux disease with esophagitis, without bleeding; K22.8 Other specified diseases of esophagus; K44.9 Diaphragmatic hernia without obstruction or gangrene; K29.70 Gastritis, unspecified, without bleeding; R12 Heartburn; F17.210 Nicotine dependence, cigarettes, uncomplicated
CPT/HCPCS: 43239; 45385; 88305; J3010